=== PATIENT | female | born 2005 | race Caucasian/White ===

== ENCOUNTER 2024-02-23 00:43 | Emergency (ER) | payer BC ==
[2024-02-23] MEDS ORDERED: Ondansetron PF 4 MG/2 ML Vial ONE (00:56)
[2024-02-23 01:17] LABS: Alcohol 203.4 mg/dL (Less than 10); Anion Gap 15 mmol/L (10-20); BUN (Urea Nitrogen) 15 mg/dL (7.0-18.7); Calc. Creatinine Clearance 0 mL/min (70-130); Carbon Dioxide 18 mmol/L (22-29); Chloride 113 mmol/L (98-107); Estimated GFR 94; Glucose 117 mg/dL (70-105); Sodium 143 mmol/L (136-145)
[2024-02-23] MEDS ORDERED: Potassium Chloride 20 MEQ TAB ONE (04:45)
[2024-02-23] MEDS ORDERED: Potassium Bicarbonate/Cit Ac 25 MEQ TAB ONE (04:48)
== END 2024-02-23 05:23 | disposition home or self-care (01) ==
LOC: CSHERS 00:43
DX: R55 Syncope and collapse (principal); F10.129 Alcohol abuse with intoxication, unspecified; Y90.7 Blood alcohol level of 200-239 mg/100 ml
CPT/HCPCS: 36416; 80048; 80307; 93005; 96361; 96374; J2405